=== PATIENT | male | born 1985 | race African-American/Black ===

== ENCOUNTER 2017-11-09 01:57 | Emergency (ER) | payer MEDICAID ==
[~2017-11-09] VITALS: Ht 167.6 cm; Wt 77.1 kg
--- NOTE | 2017-11-09 02:20 | NUR ---
PT IN BED. PT IS A&OX4. BREATH SOUNDS REGULAR AND UNLABORED. NO SIGNS OF DISTRESS WITNESSED BY NURSE OR EXPRESSED BY PT.
--- NOTE | 2017-11-09 03:10 | NUR ---
XRAY AT BEDSIDE.
[2017-11-09] MEDS ORDERED: ACETAMINOPHEN 325 MG TABLET PO ONE (03:30)
--- NOTE | 2017-11-09 03:31 | NUR ---
PT DECLINES CT.
[2017-11-09 03:37] LABS: BASOPHILS # (AUTO) 0.1 K/uL (0.0-8.0); BASOPHILS % (AUTO) 0.9 % (0.0-2.0); EOSINOPHILS # (AUTO) 0.3 K/uL (0.0-0.7); EOSINOPHILS % (AUTO) 3.1 % (0.0-7.0); HEMATOCRIT 41.8 % (36.7-47.1); HEMOGLOBIN 14.4 g/dL (12.5-16.3); LYMPHOCYTES % (AUTO) 21.8 % (20.5-51.5); MEAN CORPUSCULAR HEMOGLOBIN 29.3 uug (23.8-33.4); MEAN CORPUSCULAR HGB CONC 34 g/dL (32.5-36.3); MEAN CORPUSCULAR VOLUME 85.1 fL (73.0-96.2); MONOCYTES # (AUTO) 0.7 K/uL (2.0-10.0); MONOCYTES % (AUTO) 7.4 % (0.0-11.0); NEUTROPHILS % (AUTO) 66.8 % (38.5-71.5); PLATELET COUNT (AUTO) 276 K/uL (152-348)
[2017-11-09 03:46] LABS: CARBON DIOXIDE 30 mmol/L (21-32); CHLORIDE 105 mmol/L (98-107); CREATININE 1.1 mg/dL (0.6-1.3); GLUCOSE 89 mg/dL (74-106); UREA NITROGEN, BLOOD 20 mg/dL (7-18)
[2017-11-09 04:01] LABS: ALANINE AMINOTRANSFERASE 44 U/L (16-63); ALKALINE PHOSPHATASE 65 U/L (50-136); ASPARTATE AMINOTRANSFERASE 66 U/L (15-37); BILIRUBIN,DIRECT 0.1 mg/dL (0.0-0.2); BILIRUBIN,TOTAL 0.5 mg/dL (0.2-1.0); TOTAL PROTEIN, SERUM 7.5 g/dL (6.4-8.2)
[2017-11-09 04:02] LABS: ACETAMINOPHEN < 2.0 ug/mL (10-30)
[2017-11-09] MEDS ORDERED: ACETAMINOPHEN 325 MG TABLET ONE (04:02)
[2017-11-09 04:03] LABS: THYROID STIMULATING HORMONE 2.794 mIU/mL (0.358-3.740)
--- NOTE | 2017-11-09 04:40 | NUR ---
PT REPORTS REDUCED PAIN AFTER MEDS.
[2017-11-09 04:54] LABS: ETHANOL < 3 MG/DL (0-0)
--- NOTE | 2017-11-09 05:06 | NUR ---
MD BREWER WANTS PT TO BE ASSESSED BY JOHN ARREGUIN BEFORE DISCHARGE
--- NOTE | 2017-11-09 06:12 | NUR ---
PT STILL IN BED. PT IS WATCHING TV AND LISTENING TO COUNTRY MUSIC. NO SIGNS OF DISTRESS WITNESSED BY NURSE OR EXPRESSED BY PT.
--- NOTE | 2017-11-09 06:37 | NUR ---
JOHN ARREGUIN AT BEDSIDE.
--- NOTE | 2017-11-09 07:15 | NUR ---
Patient discharged to home in stable conditon. Written and verbal after care instructions given. Patient verbalizes understanding of instructions. Patient able to ambulate unassisted with steady gait. Patient left with all personal belongings.
[2017-11-09 07:18] VITALS: BP 119/80
== END 2017-11-09 07:19 | disposition home or self-care (01) ==
LOC: ER 02:02
DX: R53.1 Weakness (principal); Z59.0 Homelessness
CPT/HCPCS: 36415; 71045; 83605; 84443; 85025; 85651; 85730; 87040; 93005; A4663; G0480; G0480-TC

== ENCOUNTER 2019-07-24 17:57 | Emergency (ER) | payer MEDICAID ==
--- NOTE | 2019-07-24 17:58 | NUR ---
Attempted to traige, per ER admitting pt stated he is going out to smoke.
--- NOTE | 2019-07-24 18:08 | NUR ---
BROUGHT PT DIRECTLY INTO ROOM 5A FOR TRIAGE. PT STATED "I SAID SOME STUFF EARLIER BUT I DIDN'T MEAN IT". PT STATES HE DOES NOT WANT TO BE SEEN. PT DENIES ANY SUICIDAL OR HOMICIDAL IDEATION. SLOAN SHULTZ RN AT BEDSIDE WELL.
== END 2019-07-24 18:22 | disposition left against medical advice (07) ==
LOC: ER 17:59
DX: Z53.21 Procedure and treatment not carried out due to patient leaving prior to being seen by health care provider (principal)

== ENCOUNTER 2019-08-01 21:22 | Emergency (ER) | payer MEDICAID ==
[~2019-08-01] VITALS: Ht 175.3 cm; Wt 104.3 kg
[2019-08-01 22:07] LABS: BASOPHILS % (AUTO) 0.4 % (0.0-2.0); EOSINOPHILS # (AUTO) 0.1 K/uL (0.0-0.7); EOSINOPHILS % (AUTO) 1.3 % (0.0-7.0); HEMATOCRIT 43.5 % (36.7-47.1); HEMOGLOBIN 14.5 g/dL (12.5-16.3); LYMPHOCYTES # (AUTO) 1.6 K/uL (20.0-40.0); LYMPHOCYTES % (AUTO) 28.7 % (20.5-51.5); MEAN CORPUSCULAR HEMOGLOBIN 29.5 uug (23.8-33.4); MEAN CORPUSCULAR HGB CONC 33 g/dL (32.5-36.3); MEAN CORPUSCULAR VOLUME 88.7 fL (73.0-96.2); MONOCYTES # (AUTO) 0.5 K/uL (2.0-10.0); MONOCYTES % (AUTO) 8.6 % (0.0-11.0); NEUTROPHILS # (AUTO) 3.3 K/uL (1.8-8.9); PLATELET COUNT (AUTO) 305 K/uL (152-348); WHITE BLOOD COUNT (AUTO) 5.4 K/uL (3.6-10.2)
[2019-08-01 22:10] LABS: *AMPHETAMINE, URINE NEGATIVE (NEGATIVE); *BARBITURATE, URINE NEGATIVE (NEGATIVE); *CANNABINOID, URINE POSITIVE (NEGATIVE); *COCCAINE, URINE NEGATIVE (NEGATIVE); *OPIATE, URINE NEGATIVE (NEGATIVE); *PHENCYCLIDINE SCREEN,URINE NEGATIVE (NEGATIVE)
[2019-08-01 22:15] LABS: CARBON DIOXIDE 31 mmol/L (21-32); CHLORIDE 101 mmol/L (98-107); CREATININE 1.7 mg/dL (0.6-1.3); GLUCOSE 138 mg/dL (74-106); POTASSIUM 3.8 mmol/L (3.5-5.1); UREA NITROGEN, BLOOD 18 mg/dL (7-18)
[2019-08-01 22:21] LABS: ALANINE AMINOTRANSFERASE 27 U/L (16-63); ALKALINE PHOSPHATASE 72 U/L (50-136); ASPARTATE AMINOTRANSFERASE 21 U/L (15-37); BILIRUBIN,DIRECT 0.1 mg/dL (0.0-0.2); BILIRUBIN,TOTAL 0.3 mg/dL (0.2-1.0); ETHANOL < 3 MG/DL (0-0); TOTAL PROTEIN, SERUM 7.6 g/dL (6.4-8.2)
[2019-08-01 22:22] LABS: ACETAMINOPHEN < 2.0 ug/mL (10-30)
[2019-08-01 22:28] LABS: THYROID STIMULATING HORMONE 0.661 mIU/mL (0.358-3.740)
--- NOTE | 2019-08-01 23:00 | NUR ---
PATIENT IN ROOM WATCHING MOVIES ON HIS CELL PHONE WITH NO DISTRESS NOTED.
--- NOTE | 2019-08-01 23:52 | NUR ---
Patient given written and verbal discharge instructions. Patient verbalizes understanding of instructions. Patient is ambulatory with steady gait. Refuses offer of [facility] placement. Patient given list of available shelters in surrounding area.
[2019-08-01 23:53] VITALS: BP 140/75
== END 2019-08-01 23:54 | disposition home or self-care (01) ==
LOC: ER 21:24
DX: R46.1 Bizarre personal appearance (principal); T40.7X5A Adverse effect of cannabis (derivatives), initial encounter; H57.89 Other specified disorders of eye and adnexa; Y92.89 Other specified places as the place of occurrence of the external cause
CPT/HCPCS: 36415; 70480; 80048; 80076; 80307; 84443; 85025; 99284; G0480 ×2; G0481; A4663

== ENCOUNTER 2019-08-02 04:25 | Emergency (ER) | payer MEDICAID ==
[~2019-08-02] VITALS: Ht 170.2 cm; Wt 89.8 kg
--- NOTE | 2019-08-02 04:35 | NUR ---
Patient BIB [facility] for c/o back pain for 3hrs, Patient states "I was walking on to cross the street but I suddenly stopped which hurt my back." Patient denies any trauma to area. ambulatory to [facility] with steady gait.
--- NOTE | 2019-08-02 04:50 | NUR ---
Patient c/o SI stating has been depressed due to being homeless. Patient plan in to run into traffic.
--- NOTE | 2019-08-02 04:59 | NUR ---
Called [facility] and spoke to Surekha alexys. No beds available until after 0900 AM today. Will fax facesheet and clinical to as requested.
[2019-08-02] MEDS ORDERED: HYDROCODONE/APAP 5-325MG TABLET PO ONE (05:00)
[2019-08-02] MEDS ORDERED: HYDROCODONE/APAP 5-325MG TABLET ONE (05:09)
--- NOTE | 2019-08-02 06:03 | NUR ---
Patient wanded per Hospital protocol.
--- NOTE | 2019-08-02 08:36 | NUR ---
[facility] called and offered help to place the pt. requested data faxed over per request at [phone]
--- NOTE | 2019-08-02 09:10 | NUR ---
called katelyn valerio and left a message.
--- NOTE | 2019-08-02 09:13 | NUR ---
pt ambulated to bathroom with steady gait. offered break fast tray. pt refused
--- NOTE | 2019-08-02 09:21 | NUR ---
called [facility] and talked to kierra. they are reviewing the case and will call back with more info.
--- NOTE | 2019-08-02 09:51 | NUR ---
al from [facility] called and said that the pt has been recently at [facility] and cannot be accepted again and there is no availability at [facility].
--- NOTE | 2019-08-02 09:54 | NUR ---
called social worker delinquency prevention to pace the pt.
--- NOTE | 2019-08-02 10:08 | NUR ---
talked to lindsey villarreal over the phone. lindsey villarreal will look into the case.
--- NOTE | 2019-08-02 10:15 | NUR ---
social problems specialist at bedside talking to pt.
--- NOTE | 2019-08-02 11:00 | NUR ---
pura valerio at bedside
--- NOTE | 2019-08-02 11:07 | NUR ---
Social Work Consultation: Drums Teacher met with patient today regarding suicidal ideation. This specifications writer spoke with Andrea at [facility] who stated patient was recently discharged from there on 07/30/19 and cannot be readmitted at this time and should refer out. Patient reports daily marijuana and alcohol use. In view of patients reported suicidal ideation, Jessica Sosa will be meeting with the patient for further evaluation.
--- NOTE | 2019-08-02 11:22 | NUR ---
Patient given written and verbal discharge instructions. Patient verbalizes understanding of instructions. Patient is ambulatory with steady gait. Patient given list of available shelters in surrounding area. food and winter clothing provided. pt walked appreciative of the service recieved here. pt deneis any pain or any other complain at this time. hygien products provided for pt per [employer].
[2019-08-02 11:24] VITALS: BP 131/71
== END 2019-08-02 11:25 | disposition home or self-care (01) ==
LOC: ER 04:27
DX: M54.9 Dorsalgia, unspecified (principal); F32.9 Major depressive disorder, single episode, unspecified; F12.10 Cannabis abuse, uncomplicated; Z59.0 Homelessness
CPT/HCPCS: A4663

== ENCOUNTER 2019-11-19 03:44 | Emergency (ER) | payer MEDICAID ==
[~2019-11-19] VITALS: Ht 170.2 cm; Wt 86.6 kg
--- NOTE | 2019-11-19 04:15 | NUR ---
PATIENT WAS MSE BY DR MAYORGA IN ROOM 05A.
--- NOTE | 2019-11-19 04:42 | NUR ---
Patient discharged to home in stable condition. Written and verbal after care instructions given. Patient verbalizes understanding of instructions.
[2019-11-19 04:44] VITALS: BP 125/79
== END 2019-11-19 04:48 | disposition home or self-care (01) ==
LOC: ER 03:46
DX: M54.9 Dorsalgia, unspecified (principal); G89.29 Other chronic pain; R07.9 Chest pain, unspecified; Z59.0 Homelessness
CPT/HCPCS: 93005; A4663

== ENCOUNTER 2019-12-29 22:15 | Emergency (ER) | payer MEDICAID ==
[~2019-12-29] VITALS: Ht 172.7 cm; Wt 81.6 kg
--- NOTE | 2019-12-29 22:15 | NUR ---
Pt presented to ER in a stable condition walking w/steady gait c/o R knee pain radiating to his calf .Pt states he was exercising 45 min ago and felt sharp pain in his knee and calf. Pt has hx of chronic back pain. A/Ox3, no neuro deficit noted. V/S stable. No SOB, No Chest pain .
[2019-12-29] MEDS: ACETAMINOPHEN/CODEINE 300-30 MG TABLET PO ONE (22:45)
[2019-12-29] MEDS ORDERED: ACETAMINOPHEN/CODEINE 300-30 MG TABLET ONE (22:49)
--- NOTE | 2019-12-29 22:55 | NUR ---
Patient given written and verbal discharge instructions. Patient verbalizes understanding of instructions. Patient is ambulatory with steady gait. Refuses offer of alf placement. Patient given list of available shelters in surrounding area.V/S STABLE, ALL BELONGINGS W/ PT. REFUSED ALL SERVICES AT THIS TIME.
[2019-12-29 23:03] VITALS: BP 140/72
== END 2019-12-29 22:55 | disposition home or self-care (01) ==
LOC: ER 22:17
DX: S86.912A Strain of unspecified muscle(s) and tendon(s) at lower leg level, left leg, initial encounter (principal); X50.3XXA Overexertion from repetitive movements, initial encounter; X50.9XXA Other and unspecified overexertion or strenuous movements or postures, initial encounter; Y93.B9 Activity, other involving muscle strengthening exercises; Y92.89 Other specified places as the place of occurrence of the external cause; G89.29 Other chronic pain; M79.673 Pain in unspecified foot; Z59.0 Homelessness; R03.0 Elevated blood-pressure reading, without diagnosis of hypertension
CPT/HCPCS: A4663

== ENCOUNTER 2022-02-13 04:53 | Emergency (ER) | payer MEDICAID ==
[~2022-02-13] VITALS: Ht 172.7 cm; Wt 81.6 kg
[2022-02-13] MEDS ORDERED: ALPRAZOLAM 0.25 MG TABLET ONE (05:45)
[2022-02-13] MEDS ORDERED: ALPRAZOLAM 0.25 MG TABLET PO ONE (05:45)
[2022-02-13 06:12] LABS: MEAN CORPUSCULAR HEMOGLOBIN 29.9 uug (23.8-33.4); MEAN CORPUSCULAR VOLUME 86.6 fL (73.0-96.2); PLATELET COUNT (AUTO) 251 K/uL (152-348)
[2022-02-13] MEDS ORDERED: ALPR0.255 PO (06:15)
[2022-02-13 06:24] LABS: CARBON DIOXIDE 28 mmol/L (21-32); CHLORIDE 103 mmol/L (98-107); CREATININE 1.2 mg/dL (0.6-1.3); GLUCOSE 124 mg/dL (74-106); POTASSIUM 4.2 mmol/L (3.5-5.1); UREA NITROGEN, BLOOD 23 mg/dL (7-18)
[2022-02-13 06:28] LABS: ETHANOL < 3 MG/DL (0-0)
[2022-02-13 06:29] LABS: ACETAMINOPHEN < 2.0 ug/mL (10-30); ALANINE AMINOTRANSFERASE 47 U/L (16-63); ALKALINE PHOSPHATASE 56 U/L (50-136); ASPARTATE AMINOTRANSFERASE 53 U/L (15-37); BILIRUBIN,DIRECT 0.3 mg/dL (0.0-0.2); BILIRUBIN,TOTAL 1.1 mg/dL (0.2-1.0); TOTAL PROTEIN, SERUM 7.1 g/dL (6.4-8.2)
[2022-02-13 06:43] LABS: THYROID STIMULATING HORMONE 0.428 mIU/mL (0.358-3.740)
[2022-02-13 07:48] LABS: *BILIRUBIN,URIN 1+ (NEGATIVE); *BLOOD, URINE NEGATIVE (NEGATIVE); *CLARITY,URINE CLEAR (CLEAR); *COLOR,URINE YELLOW (YELLOW); *KETONES,URINE 1+ (NEGATIVE); LEUKOCYTE ESTERASE ,URINE NEGATIVE (NEGATIVE); NITRITE, URINE NEGATIVE (NEGATIVE); UGLUCOSE NEGATIVE (NEGATIVE)
[2022-02-13 08:01] LABS: *AMPHETAMINE, URINE POSITIVE (NEGATIVE); *CANNABINOID, URINE POSITIVE (NEGATIVE); *COCCAINE, URINE NEGATIVE (NEGATIVE); *OPIATE, URINE NEGATIVE (NEGATIVE); *PHENCYCLIDINE SCREEN,URINE NEGATIVE (NEGATIVE)
--- NOTE | 2022-02-13 08:16 | NUR ---
Dr Joshi medically cleared the pt for psych eval.
--- NOTE | 2022-02-13 08:24 | NUR ---
ART C. CALLED FOR PSYCH EVAL. PT REMAINS AWAKE AND VERBALLY RESPONSIVE.
--- NOTE | 2022-02-13 09:00 | NUR ---
Recieved a call fro PET merchant miller A Capilla, statting pt will go voluntrary.
--- NOTE | 2022-02-13 09:10 | NUR ---
Spoke to Rob in intake and pt's info faxed per request.
--- NOTE | 2022-02-13 11:55 | NUR ---
Pt is accepted at [facility]. EMT transfer 1 hour by [facility].
--- NOTE | 2022-02-13 12:16 | NUR ---
Report given to Shaheen DANIEL at [facility]. Pt signed consent for transfer.
--- NOTE | 2022-02-13 13:53 | NUR ---
Report given to transfering account liaison hospice. All belongings sent w/ pt. Pt left ER in stable condition via gurney.
[2022-02-13 13:56] VITALS: BP 122/71
== END 2022-02-13 13:56 ==
LOC: ER 04:58
DX: F32.A Depression, unspecified (principal); R45.851 Suicidal ideations; Z59.00 Homelessness unspecified; F12.10 Cannabis abuse, uncomplicated; F10.10 Alcohol abuse, uncomplicated; Y90.0 Blood alcohol level of less than 20 mg/100 ml; F41.9 Anxiety disorder, unspecified; Z20.822 Contact with and (suspected) exposure to COVID-19
CPT/HCPCS: 36415; 84443; 85025; A4663; G0480